=== PATIENT | female | born 1980 | race African-American/Black ===

== ENCOUNTER 2016-11-16 03:46 | Emergency (ER) | payer SELFPAY ==
[~2016-11-16] VITALS: Ht 160 cm; Wt 97.6 kg
[~2016-11-16 03:46] MED LIST: MECL-62 PO
[2016-11-16 03:51] VITALS: BP 157/104; PULSE 82; RESP 18; TEMP 98.8; O2SAT 98
[2016-11-16 04:17] VITALS: BP 157/104; PULSE 82; RESP 18; TEMP 98.8; O2SAT 98
--- NOTE | 2016-11-16 04:50 | PD ---
HPI Chief Complaint: Cold / Flu Symptoms Time Seen by Provider: 04:46 Travel History International Travel<30 days: No Contact w/Intl Traveler<30days: No Traveled to known affect area: No History of Present Illness HPI 36-year-old female presents to the emergency department for complaint of cough and congestion times one week with developing shortness of breath this morning. No pleuritic pain. Cough has been nonproductive. Patient denies fever or chills. Prior history of asthma. Patient used her albuterol inhaler this morning. Patient does not take control pills and denies tobacco use. No personal history of family history of clotting disorder. No recent long distance travel protracted bed rest surgical procedure or swelling of the lower extremities or pain for lower extremities. Patient is unable to identify exacerbating or alleviating factors. Patient rates pain 0/10 in intensity. Last menstrual period was normal for her and denies . Also has history of headaches and hypertension. PFSH Past Medical History Narrative Medical Asthma headache hypertension the procedure no tobacco use nursing notes reviewed Medical History: Denies Significant Hx Arthritis: No Asthma: Yes Heart Rhythm Problems: No Cardiovascular Problems: No High Cholesterol: No Chest Pain: No Congestive Heart Failure: No COPD: No Cerebrovascular Accident: No Diabetes: No Diminished Hearing: No Gastrointestinal Disorders: No Genitourinary: No Headaches: Yes Hepatitis: No Hypertension: Yes (OCCASIONAL) Immune Disorder: No Kidney Stones: No Musculoskeletal: No Neurologic: No Psychiatric: No Reproductive: No Respiratory: No Immunizations Current: No Migraines: Yes Myocardial Infarction: No Renal Failure: No Seizures: No Sleep Apnea: No Tetanus Vaccination: Unknown Influenza Vaccination: No ?: Unknown LMP: 10/30/16 Menopausal: Yes : 4 Para: 2 Miscarriage: 2 Past Surgical History Surgical History: No Previous Surgery Abdominal Surgery: No Cardiac Surgery: No Cholecystectomy: No Ear Surgery: No Endocrine Surgery: No Eye Surgery: No Genitourinary Surgery: No Gynecologic Surgery: Yes (LEEP PROCEDURE) Neurologic Surgery: No Oral Surgery: No Thoracic Surgery: No Other Surgery: Yes Social History Alcohol Use: Yes (occasional ) Tobacco Use: No Substance Use: No Allergies-Medications (Allergen,Severity, Reaction): Coded Allergies: No Known Allergies (Verified , 09/04/16) Reported Meds & Prescriptions Reported Meds & Active Scripts Active Proair Hfa 8.5 GM Inh (Albuterol Sulfate) 90 Mcg/Act Aer 2 Puff INH Q4-6H PRN 108 mcg/actuation Medrol Dosepak (Methylprednisolone) 4 Mg Dspk 4 Mg PO DIRECTED Per Pharmacist direction Zithromax Z-Nael (Azithromycin) 250 Mg Dspk 250 Mg PO DIRECTED 500 MG (2 tabs) day 1, then 1 tab days 2-5. Review of Systems Except as stated in HPI: all other systems reviewed are Neg General / Constitutional: No: Fever, Chills HENT: No: Congestion Cardiovascular: No: Chest Pain or Discomfort Respiratory: Positive: Cough, Shortness of Breath Gastrointestinal: No: Abdominal Pain Genitourinary: No: Dysuria, Flank Pain Musculoskeletal: No: Myalgias, Arthralgias Skin: No Rash Neurologic: No: Weakness Psychiatric: No: Anxiety Endocrine: No: Heat Intolerance Hematologic/Lymphatic: No: Easy Bruising Physical Exam Narrative GENERAL: Well-developed well-nourished female in no acute distress no respiratory distress SKIN: Warm and dry. HEAD: Normocephalic. EYES: No scleral icterus. No injection or drainage. NECK: Supple, trachea midline. No JVD or lymphadenopathy. CARDIOVASCULAR: Regular rate and rhythm without murmurs, gallops, or rubs. RESPIRATORY: Breath sounds equal bilaterally diminished bilaterally. No accessory muscle use. GASTROINTESTINAL: Abdomen soft, non-tender, nondistended. MUSCULOSKELETAL: No cyanosis, or edema. BACK: Nontender without obvious deformity. No CVA tenderness. Data Data Last Documented VS Vital Signs Date Time Temp Pulse Resp B/P Pulse Ox O2 Delivery O2 Flow Rate FiO2 11/16/16 04:55 97 11/16/16 04:17 98.8 82 18 157/104 Orders Chest, Pa & Lat (11/16/16 ) Ed Urine Pregnancytest Poc (11/16/16 04:46) Influenzae A/B Antigen (11/16/16 04:46) Albuterol-Ipratropium Neb (Duoneb Neb) (11/16/16 05:00) MDM Medical Decision Making Medical Screen Exam Complete: Yes Emergency Medical Condition: Yes Medical Record Reviewed: Yes Interpretation(s) cxr: nad influenza a/b ag: negative poc hcg: negative Differential Diagnosis Asthma exacerbation, pneumonia, bronchitis, PE, pneumothorax, CHF Narrative Course Patient given DuoNeb updrafts; chest x-ray and [id number] hCG ordered Diagnosis Primary Impression: Bronchitis Referrals: Primary Care Physician call for appointment Patient Instructions: General Instructions Additional Instructions: Increase fluid hydration Complete course of antibiotic and steroid Dosepak as prescribed Take acetaminophen/Tylenol as needed for fever 100.4F or greater Follow-up with her primary care provider Return to the emergency department for any concerns or change in condition Use inhaler as prescribed as needed for shortness of breath or wheezing Med/Other Pt SpecificInfo: Prescription(s) given Scripts Albuterol 8.5 GM Inh (Proair Hfa 8.5 GM Inh)90 Mcg/Act Aer2 Puff INH Q4-6H PRN ( SHORTNESS OF BREATH) #1 INHALER Ref 0 108 mcg/actuation Prov:Lainey Ingram MD 11/16/16 Methylprednisolone Dosepak (Medrol Dosepak)4 Mg Dspk4 Mg PO DIRECTED #1 DSPK Ref 0 Per Pharmacist direction Prov:Lainey Ingram MD 11/16/16 Azithromycin (Zithromax Z-Nael)250 Mg [id number] Mg PO DIRECTED #1 DSPK Ref 0 500 MG (2 tabs) day 1, then 1 tab days 2-5. Prov:Lainey Ingram MD 11/16/16 Disposition: 01 DISCHARGE HOME Condition: Stable Lainey Ingram MD Nov 16, 2016 04:50
[2016-11-16 04:55] VITALS: O2SAT 97
[2016-11-16] MEDS ORDERED: RESP: ALBUTEROL 2.5 MG/IPRATROPIUM 0.5 MG NEB (SCH) NEB ONE (05:00)
[2016-11-16] MEDS ORDERED: ZITHTAB PO (05:46)
[2016-11-16] MEDS ORDERED: ALBUAER3 INH (05:46)
[2016-11-16] MEDS ORDERED: MEDR4PAK PO (05:46)
--- NOTE | 2016-11-16 05:58 | RADHPO ---
EXAM DATE/TIME: 11/16/2016 05:24 [facility] COMPARISON: No previous studies available for comparison. INDICATIONS : Cough and shortness of breath. MEDICAL HISTORY : None. SURGICAL HISTORY : None. ENCOUNTER: Initial ACUITY: 1 week PAIN SCORE: 0/10 LOCATION: Bilateral chest FINDINGS: PA and lateral views of the chest demonstrate the lungs to be symmetrically aerated without evidence of mass, infiltrate or effusion. The cardiomediastinal contours are unremarkable. Osseous structure s are intact. CONCLUSION: 1. No acute cardiopulmonary disease. Ronald Graves MD on November 16, 2016 at 5:56 Board Certified Radiologist. This report was verified electronically.
[2016-11-16 06:05] VITALS: BP 152/89; TEMP 98.9
== END 2016-11-16 06:05 | disposition home or self-care (01) ==
LOC: PHED 03:46
DX: J45.909 Unspecified asthma, uncomplicated (principal); J40 Bronchitis, not specified as acute or chronic
CPT/HCPCS: 71020; 84703; 87804; 94664; 99283

== ENCOUNTER → 2017-11-19 | Outpatient (CLI) | payer MEDICAID ==
[~2017-11-19] MED LIST changes: +ALBUAER3 INH; -MECL-62 PO; +MEDR4PAK PO; +ZITHTAB PO
== END ==
LOC: HPND 12:35
PROVIDERS: ATTEND Obstetrics & Gynecology
DX: O10.912 Unspecified pre-existing hypertension complicating pregnancy, second trimester (principal); O09.522 Supervision of elderly multigravida, second trimester; O99.212 Obesity complicating pregnancy, second trimester; O09.292 Supervision of pregnancy with other poor reproductive or obstetric history, second trimester
CPT/HCPCS: 76811

== ENCOUNTER → 2017-12-18 | Outpatient (CLI) | payer MEDICAID | LOC: HPND 13:11 | PROVIDERS: ATTEND Obstetrics & Gynecology | DX: O09.292 Supervision of pregnancy with other poor reproductive or obstetric history, second trimester (principal); O10.012 Pre-existing essential hypertension complicating pregnancy, second trimester; O09.522 Supervision of elderly multigravida, second trimester | CPT/HCPCS: 76816 ==